=== PATIENT | female | born 1935 | race Caucasian/White ===

== ENCOUNTER → 2021-10-02 15:28 | Outpatient (CLI) | payer MEDICARE, OTHER, SELFPAY ==
--- NOTE | 2021-10-02 15:37 | DI.ECHO.S_ITS ---
[place] [facility]---------+ [facility] +---------+ : : [address] : [address] : : : : [id number] : : : : Phone: [phone]+ Echocardiogram Report + + :Name: KATHY PARKER Study Date: 10/02/2021 Height: 64 in : :[facility] ReadingLocation: Weight: 145 lb : : Gender: Female BSA: 1.7 m2 : :: 1935 Age: 86 yrs BP: 161/106 mmHg: :Reason For Study: ATRIAL FIBRILLATION : :Ordering Physician: RAMIREZ, : :BERTHA Performed By: Alma Jones : :Referring: BERTHA GUZMÁN : + + Interpretation Summary The left ventricle is normal in size and wall thickness. Left ventricular systolic function appears normal without focal wall motion abnormalities. The ejection fraction is estimated to be 60-65%. Diastolic function could not be accurately assessed due to atrial fibrillation. The right ventricle is normal in size and function. The right ventricular systolic pressure is estimated to be at least 39 mmHg based on an estimated right atrial pressure of 8 mm Hg. The left atrium is severely dilated. The right atrium is severely dilated. There is mild to moderate mitral regurgitation. There is mild to moderate tricuspid regurgitation. The ascending aorta is mildly enlarged. Procedure: A two-dimensional transthoracic echocardiogram with color flow and Doppler was performed. The study quality was technically adequate. There is no prior echocardiogram noted for this patient. The patient was in atrial fibrillation with heart rates between 91-105 bpm during the exam. Left Ventricle: The left ventricle is normal in size and wall thickness. Left ventricular systolic function appears normal without focal wall motion abnormalities. The ejection fraction is estimated to be 60-65%. Diastolic function could not be accurately assessed due to atrial fibrillation. Right Ventricle: The right ventricle is normal in size and function. Atria: The left atrium is severely dilated. The right atrium is severely dilated. There is no Doppler evidence for an interatrial shunt. Mitral Valve: The mitral valve leaflets appear mildly thickened, but open well. There is mild mitral annular calcification. There is mild to moderate mitral regurgitation. Aortic Valve: The aortic valve is trileaflet. The aortic valve opens well. There is no aortic valve stenosis. There is trace aortic regurgitation. Tricuspid Valve: The tricuspid valve is normal in structure and function. There is mild to moderate tricuspid regurgitation. The right ventricular systolic pressure is estimated to be at least 39 mmHg based on an estimated right atrial pressure of 8 mm Hg. Pulmonic Valve: The pulmonic valve leaflets are thin and pliable; valve motion is normal. There is trace pulmonic regurgitation. Great Vessels: The aortic root is normal size. The ascending aorta is mildly enlarged. The IVC is dilated (diameter is greater than 2.1 cm) yet it collapses greater than 50% with a sniff. This suggests a right atrial pressure of 8 mm Hg. Pericardium/ Pleura There is no pericardial effusion. There is no pleural effusion. MMode/2D Measurements & Calculations LVIDd: 4.1 cm LVOT diam: 1.9 cm LVIDs: 2.8 cm Ao root diam: 3.3 cm FS: 31.9 % asc Aorta Diam: 3.5 cm IVSd: 0.92 cm Ao Arch Diam (Prox Trans): 2.7 cm LVPWd: 0.75 cm LV krueger. diameter/BSA (cm/m^2): 2.4 LV sys. diameter/BSA (cm/m^2): 1.6 LA A2 area: 27.4 cm2 RA long axis: 5.8 cm LA A4 area: 29.8 cm2 RA area: 26.8 cm2 LA length (vol): 6.4 cm RA vol: 105.7 ml LA vol: 108.5 ml RA : 62.0 ml/m2 LA vol index: 63.6 ml/m2 IVC diam: 2.2 cm RVD1 (basal): 3.9 cm TAPSE: 1.7 cm Doppler Measurements & Calculations Ao V2 max: 116.5 cm/sec LVOT Max Magnus: 81.4 cm/sec Ao V2 mean: 77.3 cm/sec LV V1 max P.7 mmHg Ao max P.4 mmHg LV V1 VTI: 15.2 cm Ao mean P.7 mmHg TAY(I,D): 2.1 cm2 Ao V2 VTI: 20.3 cm TAY(V,D): 1.9 cm2 sev ratio: 0.75 TAY indexed to BSA (cm^2/m^2): 1.2 MV E max magnus: 118.2 cm/sec TR max magnus: 277.8 cm/sec MV A max magnus: 1.9 cm/sec TR max P.9 mmHg MV E/A: 61.4 PA V2 max: 95.3 cm/sec Med Peak E' Magnus: 9.5 cm/sec PA V2 mean: 63.6 cm/sec E/E' med: 12.4 PA mean P.9 mmHg Lat Peak E' Magnus: 8.2 cm/sec PA pr(Accel): 46.5 mmHg E/E' lat: 14.5 E/e' average: 13.5 MV dec time: 0.16 sec MR ERO: 0.11 cm2 MR PISA: 1.4 cm2 SV(LVOT): 42.2 ml MR flow rate: 56.9 cm3/sec MR PISA radius: 0.46 cm Reading Physician:05:43 PM
== END ==
PROVIDERS: PCP Physician Assistant; Referring Provider Physician Assistant; Visit Provider Physician Assistant
DX: I08.1 Rheumatic disorders of both mitral and tricuspid valves (principal); I77.89 Other specified disorders of arteries and arterioles; I48.91 Unspecified atrial fibrillation
CPT/HCPCS: 93306